=== PATIENT | male | born 1965 | race African-American/Black ===

== ENCOUNTER 2022-08-15 09:17 | Emergency (ER) | payer OTHER ==
[~2022-08-15] VITALS: Ht 170.2 cm; Wt 145.1 kg
[2022-08-15] MEDS ORDERED: VAZALORE81 MG PO (09:27)
[2022-08-15] MEDS ORDERED: NORFLEX100MG PO (13:41)
[2022-08-15] MEDS ORDERED: KETO10TA2 PO (13:41)
== END 2022-08-15 13:46 | disposition home or self-care (01) ==
LOC: ER 09:17
DX: R10.9 Unspecified abdominal pain (principal)

== ENCOUNTER 2022-09-11 06:56 | Emergency (ER) | payer OTHER ==
[~2022-09-11] VITALS: Ht 170.2 cm; Wt 145.1 kg
[~2022-09-11 06:56] MED LIST: KETO10TA2 PO; NORFLEX100MG PO; VAZALORE81 MG PO
[2022-09-11] MEDS ORDERED: MICARDIS80 MG (07:24)
[2022-09-11] MEDS ORDERED: PENTOXIFYLLINE400 MG (07:24)
[2022-09-11] MEDS ORDERED: CRESTOR20 MG (07:25)
[2022-09-11] MEDS ORDERED: BENZONATATE200 M1 PO (12:27)
[2022-09-11] MEDS ORDERED: MUCINEX DM ER1 EAC1 PO (12:27)
[2022-09-11] MEDS ORDERED: ALBUTEROL2.5 MG/3 M IH (12:27)
[2022-09-11] MEDS ORDERED: MOLNUPIRAVIR (200 MG PO (12:27)
== END 2022-09-11 12:40 ==
LOC: ER 06:56
DX: U07.1 COVID-19 (principal); I10 Essential (primary) hypertension